=== PATIENT | male | born 1945 | race Caucasian/White ===

== ENCOUNTER 2016-10-11 16:56 | Inpatient (IN) | payer OTHER, MEDICARE ==
[~2016-10-11] VITALS: Ht 177.8 cm; Wt 109.3 kg
--- NOTE | 2016-10-11 19:40 | NUR ---
REPORT FROM ROSARIO SMITH. PT TO CCU PER STRETCHER. MOVED FRON STRETCHER TO BED USING SLIDER SHEET, PT PRAVEEN WELL AND ABLE TO ASSIST WITH TURNING.
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
[2016-10-11] MEDS ORDERED: METFORMIN HCL1000 M1 PO (20:42)
[2016-10-11] MEDS ORDERED: COZAAR25 MG PO (20:46)
[2016-10-11] MEDS ORDERED: ALLOPURINOL100 MG PO (20:47)
[2016-10-11] MEDS ORDERED: ASPIR-LOW81 MG PO (20:48)
--- NOTE | 2016-10-11 22:05 | NUR ---
GIVEN 2 NORCO PO FOR PAIN. PAIN DID INCREASE WHEN SAT UP TO TAKE MEDS. DOZES SOME. GIVEN CRACKERS AND 7-UP WITH MEDS.
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
--- NOTE | 2016-10-11 23:41 | NUR ---
DOZING, STATES PAIN IS GOOD IF DOESN'T MOVE. ENCOURAGED TO DEEP BREATH. READY TO SLEEP.
--- NOTE | 2016-10-11 23:42 | NUR ---
CLOTH THAT WAS USED TO IMMOBILIZE SHOULDER THAT WAS PLACED IN FEILD CUT CUTTING INTO PT SKIN. RT ARM HELD IN PLACE WITH PILLOW.
--- NOTE | 2016-10-12 01:30 | NUR ---
IS SLEEPING, NOTED SNORING WITH BREIF DESATS TO LOWER 80'S THEN BACK TO MID 90'S.
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
--- NOTE | 2016-10-12 04:22 | NUR ---
COUGHING, RATES PAIN UP TO 8 WITH COUGH. GIVEN HARD CANDY REQUESTED COUGH DROP. ADVISED IF FELT LIKE HE WAS GOING TO GO TO SLEEP TO REMOVE CANDY. ALSO TOLD TO INFORM STAFF IF PAIN DIDN'T IMPROVE WITHR REST.
--- NOTE | 2016-10-12 06:54 | NUR ---
DRSG FROM L ELBOW AND L HAND REMOVED TO LOOK FOR VEINS FOR LAB DRAW. ABRASIONS CLEANSED WITH SALINE COVERED WITH TELFA AND WRAPPED. ABRASION L HAND IS AT BASE OF 1ST FINGER AND ABOUT QUARTER SIZED. ABRASION L OUTER ELBOW IS ABOUT 3 IN LONG AND 2INCHES WIDE WITH SCRATCHING TO UPPER ARM.
--- NOTE | 2016-10-12 07:30 | NUR ---
AWAKE, GETTING READY TO TAKE PATIENT TO XRAY. TALKED WITH PATIENT ABOUT PALN OF CARE FOR DAY. IS UNDERTANDING. IV/EDWARD CATH PATENT. O2 IN PLACE.
--- NOTE | 2016-10-12 07:40 | NUR ---
TO XRAY VIA W/C. DILAUDID 1 MG IV GIVEN. PATIENT MOVING WELL WITH ASSIST. DENIES DIZZINESS.
--- NOTE | 2016-10-12 08:00 | NUR ---
RETURN TO CCU. TOLERATED XRAY WELL. TO CHAIR FOR BREAKFAST. ASSESSMENT DONE.
--- NOTE | 2016-10-12 08:45 | NUR ---
HERE TO SEE PATIENT. SPLINT TO R ARM OFF. TO HAVE CT OF SHOULDER. SHOULDER IMMOBLIZER APPLIED.
--- NOTE | 2016-10-12 08:50 | NUR ---
NORCO 10/325 (2) GIVEN FOR PAIN. FRIENDS AT BEDSIDE.
--- NOTE | 2016-10-12 09:00 | NUR ---
DR. CHOI HERE TO SEE PATIENT. SPLINT TO RIGHT ARM DC'D PER DR CHOI ORDERS.
--- NOTE | 2016-10-12 09:21 | NUR ---
TO CT VIA W/C.
--- NOTE | 2016-10-12 09:49 | NUR ---
RETURN TO CCU. TOLERATED CT FAIR.
--- NOTE | 2016-10-12 10:00 | NUR ---
PATIENT REQUESTING O2 OFF. THIS DONE. WILL CONTINUE TO MONITOR O2 SATS.
--- NOTE | 2016-10-12 10:30 | NUR ---
DR. LEUNG HERE TO SEE PATIENT. EDWARD CATH DC'D. IV FLUIDS DECREASED TO 30 ML/HR.
--- NOTE | 2016-10-12 11:15 | NUR ---
O2 AT 2 L REAPPLIED O2 SATS DOWN TO 77.
--- NOTE | 2016-10-12 11:40 | NUR ---
CONTINUE TO SIT IN CHAIR.
--- NOTE | 2016-10-12 13:05 | EKG ---
[facility] [address] [facility] [place] [address] Signed Sinus tachycardia Abnormal QRS-T angle, consider primary T wave abnormality , Lead [address] abnormality Inferior leads Abnormal ECG No previous ECGs available Confirmed by ROME BOWMAN MD ([id number]) on 10/12/2016 1:05:19 PM Electronically Signed By: ROME BOWMAN MD 10/12/16 1305 PATIENT NAME: JEM HEATH Electrocardiogram DATE OF : 43 PHYSICIAN: ROME BOWMAN MD REPORT #: [id number] REPORT IS CONFIDENTIAL AND NOT TO BE RELEASED WITHOUT AUTHORIZATION
--- NOTE | 2016-10-12 15:15 | NUR ---
NORCO 2 TABS GIVEN. REMAINS IN CHAIR. ALL ABRASIONS OPEN TO AIR PER ORDERS. TAKING FLUIDS WELL. HAS NOT VOIDED SINCE EDWARD CATH DC'D AT 1030.
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
[2016-10-12] MEDS ORDERED: GLIPIZIDE ER5 MG PO (16:44)
[2016-10-12] MEDS ORDERED: LISINOPRIL20 MG PO (16:44)
[2016-10-12] MEDS ORDERED: SILDENAFIL20 MG PO (16:46)
--- NOTE | 2016-10-12 16:48 | NUR ---
MED REC COMPLETE WITH WILLIAM REFILL HISTORY.
--- NOTE | 2016-10-12 18:08 | NUR ---
DENIES NEED TO VOID.
--- NOTE | 2016-10-12 18:35 | NUR ---
AMBULATED TO TO VOID 300 ML OF CONCENTRATED URINE. C/O PAIN IN LEFT KNEE WHEN WALKING.
--- NOTE | 2016-10-12 18:56 | NUR ---
WISHES TO CONTINUE TO SIT IN CHAIR. HAS BEEN SITTING IN CHAIR ALL DAY,
--- NOTE | 2016-10-12 19:39 | NUR ---
REPORT RECIEVED FROM BETTIE SMITH. PT IS ASLEEP IN CHAIR.
--- NOTE | 2016-10-12 20:56 | NUR ---
AWAKE, WANTING TO GET BACK TO BED. IS SHIVERING AND CHILLING T 100 ORALLY. PT VERY STIFF AND PAINFUL AND TOOK SEVERAL TRIES FOR HIM TO STAND. WHEN UP WAS STEADY ON FEET. ASSISTED TO BED. STATES THIS IS THE WORST HIS PAIN HAS BEEN. GIVEN 2 NORCO 10/325 FOR PAIN AND TEMP. CONT TO OOZE FROM ABRASIONS,CLARITA R ELBOW.
--- NOTE | 2016-10-12 22:38 | NUR ---
SLEEPING AT THIS TIME
--- NOTE | 2016-10-13 00:39 | NUR ---
PT STATES IS COMFORTABLE. ABLE TO HELP REPOSITION SELF SOME IN BED. DENIES NEED TO VOID. BLADDER SCANNED FOR 177ML. DR LEUNG CALLED IVF INCREASED TO 55ML HR. PT ENCOURAGED TO DRINK MORE.
--- NOTE | 2016-10-13 02:17 | NUR ---
AWAKE, STOOD AT BEDSIDE TO VOID AND THEN TO CHAIR. MOVING LESS STIFFLY. VOIDED 400ML ORANGE URINE. GIVEN 2 NORCO 10/325 FOR PAIN CONTROL.
--- NOTE | 2016-10-13 04:32 | NUR ---
SLEEPING OFF AND ON IN CHAIR. OCC READS.
--- NOTE | 2016-10-13 05:51 | NUR ---
AMB TO BR TO VOID AND THEN BACK TO CHAIR, PRAVEEN BEING UP WELL. IS SOMEWHAT DISORIENTED TO TIME, THOUGHT IT WAS LATE AT NIGHT. USING PHONE TO CALL FRIEND.
--- NOTE | 2016-10-13 06:00 | NUR ---
TRIAL OF RA SATS DECREASED TO 85%, 02 RE APPLIED AT 2L NC.
--- NOTE | 2016-10-13 06:53 | NUR ---
CONT UP IN CHAIR. DR LEUNG IN TO SEE PT.
--- NOTE | 2016-10-13 08:00 | NUR ---
SITTING UP IN CHAIR. ASSESSMENT DONE. DR. LEUNG HERE EARLIER AND DISCHARGED ORDERS RECIEVED.
--- NOTE | 2016-10-13 09:50 | NUR ---
AMBULATED TO SHOWER, USING WALKER. TOLERATED AMBULATION WELL. DENIES SHORTNESS OF BREATH.
--- NOTE | 2016-10-13 10:10 | NUR ---
TOLERATED SHOWER WELL. DRESSED IN SCRUBS FOR DISCHARGE. WILL GIVE DISCHAGE INSTRUCTIONS WHEN FRIENDS HERE TO TAKE PATIENT HOME.
--- NOTE | 2016-10-13 12:00 | NUR ---
REMAINS IN CHAIR. IS VERY SLEEPY. LUNGS CLEAR. O2 SAT HIGH 80' TO LOW 90'S.
--- NOTE | 2016-10-13 12:30 | NUR ---
SLEEPING IN CHAIR. LUNCH IN ROOM. STATES HE WILL EAT LATER. HAS BEEN SLEEPY SINCE HAD SHOWER.
[2016-10-13] MEDS ORDERED: NORCO 10-325 T1 EACH PO (12:38)
--- NOTE | 2016-10-13 14:20 | NUR ---
C/O CHILLING. TEMP 99.0
--- NOTE | 2016-10-13 14:25 | NUR ---
ATTEMPED TO GIVE DISCHARGE INSTRUCTIONS. FRIENDS HERE. IS NOT ABLE TO TRACK. CLOSING EYES FREQUENTLY.
--- NOTE | 2016-10-13 14:40 | NUR ---
TEMP NOW 102.1. IS LETHARGIC. HAS BEEN SLEEPY SINCE SHOWER GIVE AT APPROX 1000.
--- NOTE | 2016-10-13 14:45 | NUR ---
DR. LEUNG UPDATED ON PATIENT CONDITION. ORDERS RECIEVED TO DC DISCHARGE. PATIENT WILL REMAIN IN CCU AT THIS TIME.
--- NOTE | 2016-10-13 15:00 | NUR ---
CALLED DR. LEUNG AGAIN, LAB ORDERS RECIEVED. WILL CONSULT DR. BOWMAN. PATIENT NOW IN BED.
--- NOTE | 2016-10-13 16:30 | NUR ---
TO XRAY VIA W/C FOR CHEST XRAY.
--- NOTE | 2016-10-13 17:58 | NUR ---
PATIENT IS FRUSTRATED. WANTS TO GO HOME. UP IN CHAIR TALKING WITH BROTHER. HR-123. TALKING WITH PATIENT ABOUT WHAT HAS HAPPENED TODAY. IS NOT TRACKING WELL.
--- NOTE | 2016-10-13 18:30 | NUR ---
DR. BOWMAN HAS BEEN HERE TO SEE PATIENT. LR 500 ML BOLUS CHUCK.
--- NOTE | 2016-10-13 20:14 | NUR ---
PT SITTING UP IN CHAIR. WILL DOZE OFF EASILY, DENIES PAIN. PT IS WARY OF INTERVENTIONS AND SOMEWHAT CRANKY. IS COOPERATIVE BUT REQUIRING LONG EXPLANAIONS RE CARE. STATES HE WILL GO HOME TOMORROW NO MATTER WHAT. BP 88/28 AND THEN RECHECKED WAS 99/47. WILL RECHECK.
--- NOTE | 2016-10-13 20:51 | NUR ---
IN TO RECHECK BP. PT C/O TIGHTNESS OF CUFF AND HOW IT CUT INTO ARM. APOLOGIZED AND TOLD PT THAT WE WOULD SWITCH TO WRIST CUFF NEXT TIME TO AVOID HURTING ABRASION. PT THEN STERNLY SAID " I TOLD YOU THAT WAS THE LAST ONE". PT HAD ALSO MADE COMMENT PRIOR TO BP TAKEN THAT MAYBE WE SHOULDN'T USE THE CUFF UNTIL IT WAS FIXED. IS NOW TRYING TO USE CELL PHONE. DR LEUNG UPDATED. ORDER FOR MOE SOTO RECIEVED.
--- NOTE | 2016-10-13 21:12 | NUR ---
DR BOWMAN ALSO GIVEN UPDATE ON PT CHANGE IN MENTAL STATUS AND VITAL SIGNS.
--- NOTE | 2016-10-13 21:16 | NUR ---
PT ASKED IF HE WOULD LET ME CHECK BS, HE SAID TO CHECK IT IN THE AM AND ALSO REFUSED ALLOPURINAL.
--- NOTE | 2016-10-13 21:44 | NUR ---
PT WANTING TO GO TO BED. ALLOWED NURSE TO ASSIST HIM BACK TO BED AND MORE COOPERATIVE.
--- NOTE | 2016-10-13 23:50 | NUR ---
HAS BEEN SLEEPING IN BED. AWAKE AND TRYING TO GET OOB, STATES NEEDS TO VOID. ASSISTED TO STAND AND DID USE WALKER TO AMB TO BR TO VOID IN TOILET. PT IS SUSPICIOUS OF STAFF, REFUSES TO HAVE VS TAKEN AND STATES HE WANTS TO GO TO A REAL HOSPITAL. STATES SOMETHING IS WRONG HERE.WANTS TO GO TO THE HOSPITAL IN [facility] WHERE HE IS FROM. DID NOT WANT TO GO BACK TO BED FELT GOT WORSE BEING IN BED. EVEN DECLINES OFFER OF BLANKET. WILL KEEP MONITOR ON BUT NOT 02. HR UP TO 130 WITH EXERTION NOW 117 . PT DID TRY TO CALL BROTHER ON HIS CELL PHONE.
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
--- NOTE | 2016-10-14 00:51 | NUR ---
UPDATED DR BOWMAN. ORDER RECIEVED. PT NOW SVETLANA.
--- NOTE | 2016-10-14 01:57 | NUR ---
PT STOOD FROM CHAIR. ASSISTED BACK TO BED. PT REFUSED VS. STATED "I'M NOT DOING ANY OF THAT STUFF ANYMORE. EVERYTIME I DO THAT THEY KEEP ME IN HERE LONGER".
--- NOTE | 2016-10-14 02:52 | NUR ---
SLEEPING OFF AND ON IN BED. HAS MENTIONED SEVERAL TIMES THAT WHEN IT IS LIGHT OUT HE WANTS TO GO OUTSIDE.
--- NOTE | 2016-10-14 05:00 | NUR ---
CONT TO SLEEP OFF AND ON NO CHANGE.
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
--- NOTE | 2016-10-14 08:57 | NUR ---
ROUTINE MEDS GIVEN.
--- NOTE | 2016-10-14 10:00 | NUR ---
DISCHARGE ORDER RECIEVED VIA PHONE FROM DR. LEUNG.
--- NOTE | 2016-10-14 10:30 | NUR ---
DISCHARGE INSTRUCTIONS GIVEN. REFUSED SUPPOSITORY. PATIENT IS SITTING IN W/C READY FOR DISCHARGE.
--- NOTE | 2016-10-14 11:00 | NUR ---
ambulated to br to void. USED WALKER.
--- NOTE | 2016-10-14 11:25 | NUR ---
FRIENDS HERE TO TAKE PATIENT HOME.
--- NOTE | 2016-10-14 11:30 | NUR ---
DISCHARGED VIA W/C ACCOMP BY FRIENDS AND NURSING STAFF. R SHOULDER SLING INTACT.
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
== END 2016-10-14 11:30 | disposition home or self-care (01) | DRG 184 ==
LOC: ED 16:56 → CCU 19:20
PROVIDERS: ADMIT Colon & Rectal Surgery
DX: S22.41XA Multiple fractures of ribs, right side, initial encounter for closed fracture (principal); S27.322A Contusion of lung, bilateral, initial encounter; S42.141A Displaced fracture of glenoid cavity of scapula, right shoulder, initial encounter for closed fracture; S62.522A Displaced fracture of distal phalanx of left thumb, initial encounter for closed fracture; V29.88XA Motorcycle rider (driver) (passenger) injured in other specified transport accidents, initial encounter; S20.312A Abrasion of left front wall of thorax, initial encounter; S20.311A Abrasion of right front wall of thorax, initial encounter; N28.89 Other specified disorders of kidney and ureter; M72.0 Palmar fascial fibromatosis [Dupuytren]; I10 Essential (primary) hypertension; E11.9 Type 2 diabetes mellitus without complications; E79.0 Hyperuricemia without signs of inflammatory arthritis and tophaceous disease; R50.9 Fever, unspecified; Z79.84 Long term (current) use of oral hypoglycemic drugs; Z87.891 Personal history of nicotine dependence
CPT/HCPCS: 36415; 51798; 70450; 71020; 71260; 72125; 73030; 73130; 73200; 74177; 80048; 80053; 81001; 82150; 82550; 83605; 83735; 84100; 85018; 85025; 86850; 86900; 86901; 86920; 87040; 93005; 93010; 94640; 94761; 96361; 96374; 99285; G0390; G0480; J1170; J2405; J7030; J7120; Q9967